=== PATIENT | female | born 1935 | race Two or more races ===

== ENCOUNTER → 2019-02-24 | Outpatient (CLI) | payer MEDICARE ==
[2019-02-24 11:08] VITALS: BP 176/76; PULSE 58; RESP 16
--- NOTE | 2019-02-26 07:30 | P.PAINCN ---
History of Present Illness - Reason for Consult Consult date: 02/24/19 - History of Present Illness This is a 84-year-old patient referred by Dr. Kristi Kwong (PCP) with a chief complaint of chronic pain in right neck, radiating to right occipital region and right shoulder. Pain does not radiate into the arm. Pain has been present since approximately July 2018, began without any inciting event. She does not have pain/numbness or tingling/weakness in her arms. She states that this pain has been getting worse since it began. Pain is rated at 1/10 at best and 10/10 at worst. Pain is worse during housework activities such as dusting, where she has her head bent. She is currently taking Tylenol and mobile for pain, these are providing minimal relief. She completed neck physical therapy approximately 2-3 months ago without benefit. Of note, she did have anterior neck fusion surgery in 2005, she does not recall the levels. Neck hardware was removed in 2011 for screw migration. She currently has no hardware in her neck. Patient also denies new-onset weakness, bowel/bladder incontinence, or any other signs or symptoms of cauda equina syndrome. There are no signs of acute intoxication, and no indications of medication diversion or overuse. In addition to above, 13-point review of systems is also negative for chest pain, shortness of breath, changes in vision, changes in hearing, new onset weakness, abdominal pain, diarrhea, extreme fatigue, malaise, fever, skin changes, homicidal or suicidal ideation, or bowel or bladder incontinence. Physical exam: Vital Signs: Reviewed in EMR GENERAL: Well appearing, in no acute distress PSYCH: Mood and affect is appropriate. Awake, alert, and oriented SKIN: Skin color, texture, turgor normal, no rashes or lesions HEENT: Normocephalic, atraumatic. EOM intact CV: No pedal edema RESP: Respirations are unlabored, no audible wheezing GI: Abdomen non-distended MUSCULOSKELETAL: Bilateral upper extremity strength is normal and symmetric. No atrophy or tone abnormalities are noted. Neck: tenderness to palpation over the cervical paraspinous muscles. multiple trigger points palpable in cervical paraspinal muscles, trapezius and rhomboid on the right side. Spurling negative, Dorsey's sign negative. mildly limited cervical spine range of motion Extremities: Peripheral joint ROM is full and pain free without obvious instability or laxity in all four extremities. No edema or skin discolorations noted. Gait: Gait is normal NEUR: Bilateral upper extremity coordination and muscle stretch reflexes are physiologic and symmetric. No loss of sensation is noted. Cranial nerves are grossly intact. Imaging: MRI cervical spine done at [facility] on 02/12/2019 shows small broad-based right paracentral disc protrusion at C2-3, advanced cervical spondylosis with no significant central canal stenosis, most pronounced at C3-4 with severe right- sided neuroforaminal narrowing. At C5-6 moderate to severe right-sided neuroforaminal narrowing. osseous fusion of C4-5 vertebral bodies as well as C6-7 vertebral bodies. Partial osseous fusion including severe disc space narrowing and bridging osteophyte anteriorly at C5-6. Assessment: 1. cervical degenerative disc disease 2. cervical spondylosis 3. cervical myofascial pain syndrome Plan: 1. procedures: We will schedule the patient to have trigger point injections to right cervical paraspinals, rhomboids and trapezius muscles. If no significant benefit from this, would consider cervical epidural steroid injection. 2. Investigations: MRI cervical spine reviewed 3. Medications: management by primary care physician 4. Disposition: for above-mentioned procedure Past Medical History Past Medical History: Cancer, Eye Disorder, Musculoskeletal Disorder, Osteoarthritis (OA), Thyroid Disorder Additional Past Medical History / Comment(s): Hx melanoma, "heart racing". Macular degeneration. Cervical pain. History of Any Multi-Drug Resistant Organisms: None Reported Past Surgical History: Back Surgery, Cardiac Ablation, Hysterectomy, Joint Replacement, Orthopedic Surgery Additional Past Surgical History / Comment(s): Rt eye retina reattached, Erik cataract exc. Rt foot melanoma exc. Rt foot plantar fasciitis, Rt foot jeong's neuroma. Exc cyst on disc. Lt CTR. Neck fusion; later removal screws. Total Lt knee. ORIF Rt femur, has diony. Past Anesthesia/Blood Transfusion Reactions: No Reported Reaction Past Psychological History: No Psychological Hx Reported Smoking Status: Never smoker Past Alcohol Use History: None Reported Past Drug Use History: None Reported - Past Family History Father Brother(s) Family Medical History: Cancer Son(s) Family Medical History: Cancer Medications and Allergies Home Medications Medication Instructions Recorded Confirmed Type Acetaminophen [Tylenol Extra 500 mg PO Q8H PRN 02/20/19 02/24/19 History Strength] Ascorbic Acid [Vitamin C] 500 mg PO DAILY 02/20/19 02/24/19 History Calcium Carbonate/Vitamin D3 1 each PO DAILY 02/20/19 02/24/19 History [Calcium 600-Vit D3 400 Tablet] Cholecalciferol [Vitamin D3 (25 2,000 unit PO DAILY 02/20/19 02/24/19 History Mcg = 1000 Iu)] Folic Acid 0.8 mg PO DAILY 02/20/19 02/24/19 History Levothyroxine Sodium [Synthroid] 88 mcg PO DAILY 02/20/19 02/24/19 History Lutein 20 mg PO DAILY 02/20/19 02/24/19 History Meloxicam [Mobic] 15 mg PO DAILY 02/20/19 02/24/19 History Vit C/E/Zn/Coppr/Lutein/Zeaxan 1 each PO BID 02/20/19 02/24/19 History [Preservision Areds 2 Softgel] Allergies Allergy/AdvReac Type Severity Reaction Status Date / Time Penicillins Allergy Swelling Verified 02/24/19 11:08 Sulfa (Sulfonamide Allergy Unknown Verified 02/24/19 11:08 Antibiotics) Childhood metoclopramide [From Reglan] AdvReac overactive Verified 02/24/19 11:08 PQRS Measure Charge Sheet Measure #130: Documentation of Current Meds in Medical Chart: Patient's medications documented in chart Measure #226: Tobacco Use: Screen & Cessation Intervention: Pt not a tobacco user Measure #111: Pneumonia Vaccination: Pneumococcal vaccine administered or previously received Measure #47: Advance Care Plan: Advance care planning discussed & documented, pt chose/unable to give Measure #412: Opioid Treatment Agreement: No documentation of signed opioid treatment agreement Measure #317: Preventitive Care & Scrn High Bld Press & F/U: Pre-hypertensive or hypertensive BP documented, pt will f/u with PCP Measure #128: Body Mass Index (BMI) Screening & Follow-up: BMI documented within normal parameters Measure #131: Pain Assessment & Follow-up: Pain positive & plan documented, Follow-up scheduled Measure #431: Unhealthy Alcohol Use Preventative Care & Scrn: Patient not identified as an unhealthy alcohol user PQRS Narrative: Smoking Status Never smoker Blood Pressure 176/76 Pain Intensity [Right Upper 10 Head] Pain Intensity [None] 0 Scale Used Numeric (1 - 10) Hx Alcohol Use (MH) No Home Medications: Ambulatory Orders Acetaminophen [Tylenol Extra Strength] 500 mg PO Q8H PRN 02/20/19 Ascorbic Acid [Vitamin C] 500 mg PO DAILY 02/20/19 Calcium Carbonate/Vitamin D3 [Calcium 600-Vit D3 400 Tablet] 1 each PO DAILY 02/20/19 Cholecalciferol [Vitamin D3 (25 Mcg = 1000 Iu)] 2,000 unit PO DAILY 02/20/19 Folic Acid 0.8 mg PO DAILY 02/20/19 Levothyroxine Sodium [Synthroid] 88 mcg PO DAILY 02/20/19 Lutein 20 mg PO DAILY 02/20/19 Meloxicam [Mobic] 15 mg PO DAILY 02/20/19 Vit C/E/Zn/Coppr/Lutein/Zeaxan [Preservision Areds 2 Softgel] 1 each PO BID 02/20/19
== END ==
LOC: PNWHC3 09:58
PROVIDERS: ATTEND Anesthesiology
DX: M50.30 Other cervical disc degeneration, unspecified cervical region (principal); M47.812 Spondylosis without myelopathy or radiculopathy, cervical region; M79.18 Myalgia, other site; Z79.899 Other long term (current) drug therapy; Z79.1 Long term (current) use of non-steroidal anti-inflammatories (NSAID); Z88.0 Allergy status to penicillin; Z88.2 Allergy status to sulfonamides; Z88.8 Allergy status to other drugs, medicaments and biological substances
CPT/HCPCS: 99201

== ENCOUNTER 2019-03-18 09:06 | Day surgery (SDC) | payer MEDICARE ==
[2019-03-10 16:04] VITALS: BMI 21.9
[~2019-03-18 09:06] MED LIST: BUPIVACAINE (PF) 0.5% 30 ML VIAL ONE; LACTATED RINGERS 1,000 ML IV SCH; methylPREDNISolone ACETATE 40 MG/ML 1 ML VIAL ONE
[2019-03-18 10:00] VITALS: RESP 16; TEMP 98.2
[2019-03-18] MEDS ORDERED: LIDOCAINE 1% 20 ML VIAL (10MG/ML) FOR IV START INTRADERMA ONE (10:08)
--- NOTE | 2019-03-18 11:11 | P.PCN ---
Date of Procedure: 03/18/19 Procedure(s) Performed: . PROCEDURE 1. Right-sided cervical trigger point injection in the right side cervical paraspinal muscles and right trapezius muscles and right rhomboid muscles (Total for trigger point injected ) 2. Cervical epidurogram. PREOPERATIVE DIAGNOSIS: 1- Cervical Degenerative Disc Diseases 2-myofascial pain syndrome cervical area 3-cervical spondylosis with cervical Facet arthropathy without myelopathy POSTOPERATIVE DIAGNOSIS: : 1- Cervical Degenerative Disc Diseases , 2- myofascial pain syndrome and cervical 3-,cervical spondylosis with cervical Facet arthropathy without myelopathy ANESTHESIA: none EBL= 0 PROCEDURE INDICATION: The patient with neck pain and myofascial pain syndrome, unresponsive to conservative treatment consents for procedure. PROCEDURE DESCRIPTION / TECHNIQUE: The patient was seen and identified in the preoperative area. Risks, benefits, complications, including but not limited to infections ,bleeding , allergic reactions to the medications ,and not complete pain releife, and alternatives were discussed with the patient, the patient agreed to proceed with the procedure and signed the consent. Patient was taken to the OR and time out was completed. The patient was placed in the sitting position on the procedure table. The neck area prepped with chlorhexidine 3 then under sterile technique each of the trigger point injected with bupivacaine 0.5%, list 3 mL injected at each trigger point using 25-gauge needle injection then after negative aspiration and there was no paresthesia during the injection, total of 12 ML of ropivacaine 0.5% mixed with 40 mg of Depo-Medrol, and 3 mL of the mixture injected at each trigger point on the right side cervical paravertebral muscles 2, and I side cervical trapezius muscle, and right side rhomboid muscle, patient tolerated the procedure well without any complication Complications= none. Disposition= patient was placed in supine position and transferred to the recovery room area in stable condition and there was no evidence of upper or lower extremity motor or sensory deficit after the procedure patient was discharged from recovery room after discharge criteria met and home discharge instructions was given by the staff and patient will follow with the pain clinic in 2-4 weeks
[2019-03-18] MEDS ORDERED: IV FLUID CONTINUATION 800 ML IV ONE (11:12)
[2019-03-18 11:33] VITALS: BP 179/84; PULSE 64
== END 2019-03-18 12:12 | disposition home or self-care (01) ==
LOC: ORPAIN 09:06
PROVIDERS: ATTEND Specialist
DX: M79.18 Myalgia, other site (principal); M47.812 Spondylosis without myelopathy or radiculopathy, cervical region; M50.30 Other cervical disc degeneration, unspecified cervical region; Z78.0 Asymptomatic menopausal state; Z88.0 Allergy status to penicillin; Z88.2 Allergy status to sulfonamides; Z88.8 Allergy status to other drugs, medicaments and biological substances
CPT/HCPCS: 20553; J1030

== ENCOUNTER → 2019-04-08 | Outpatient (CLI) | payer MEDICARE ==
[2019-04-08 12:58] VITALS: BP 179/78; PULSE 58; RESP 18
--- NOTE | 2019-04-09 14:17 | P.PAINPG ---
Subjective Progress Note Date: 04/08/19 This is a 84-year-old patient who presents with a chief complaint of chronic pain in right neck, radiating to right occipital region and right shoulder. Patient was diagnosed with cervical degenerative disc disease, cervical spondylosis and cervical myofascial pain syndrome. She underwent trigger points to the cervical paraspinals, rhomboids, trapezius on 03/18/2019 and returns today for follow-up. She reports that this procedure helped her by at least 50%, pain was reduced from 8/10-4/10. She continues to have pain in the same regionright occipital, right side of neck, right trapezius region. Pain does not radiate to arm. Pain is rated at 1/10 at rest and 4/10 with activity. Pain is worse during housework activities such as dusting, where she has her head bent. She is currently taking Tylenol and mobic for pain, these are providing minimal relief. Of note, she did have anterior neck fusion surgery in 2005, she does not recall the levels. Neck hardware was removed in 2011 for screw migration. She currently has no hardware in her neck. Patient also denies new-onset weakness, bowel/bladder incontinence, or any other signs or symptoms of cauda equina syndrome. There are no signs of acute intoxication, and no indications of medication diversion or overuse. In addition to above, 13-point review of systems is also negative for chest pain, shortness of breath, changes in vision, changes in hearing, new onset weakness, abdominal pain, diarrhea, extreme fatigue, malaise, fever, skin changes, homicidal or suicidal ideation, or bowel or bladder incontinence. Physical exam: Vital Signs: Reviewed in EMR GENERAL: Well appearing, in no acute distress PSYCH: Mood and affect is appropriate. Awake, alert, and oriented SKIN: Skin color, texture, turgor normal, no rashes or lesions HEENT: Normocephalic, atraumatic. EOM intact CV: No pedal edema RESP: Respirations are unlabored, no audible wheezing GI: Abdomen non-distended MUSCULOSKELETAL: Bilateral upper extremity strength is normal and symmetric. No atrophy or tone abnormalities are noted. Neck: tenderness to palpation over the cervical paraspinous muscles. multiple trigger points palpable in cervical paraspinal muscles, trapezius and rhomboid on the right side. Spurling negative, Dorsey's sign negative. mildly limited cervical spine range of motion. Right-sided occipital Tinel's is positive. Extremities: Peripheral joint ROM is full and pain free without obvious instability or laxity in all four extremities. No edema or skin discolorations noted. Gait: Gait is normal NEUR: Bilateral upper extremity coordination and muscle stretch reflexes are physiologic and symmetric. No loss of sensation is noted. Cranial nerves are grossly intact. Imaging: MRI cervical spine done at [facility] on 02/12/2019 shows small broad-based right paracentral disc protrusion at C2-3, advanced cervical spondylosis with no significant central canal stenosis, most pronounced at C3-4 with severe right- sided neuroforaminal narrowing. At C5-6 moderate to severe right-sided neuroforaminal narrowing. osseous fusion of C4-5 vertebral bodies as well as C6-7 vertebral bodies. Partial osseous fusion including severe disc space narrowing and bridging osteophyte anteriorly at C5-6. Assessment: 1. cervical degenerative disc disease 2. cervical spondylosis 3. cervical myofascial pain syndrome 4. Right-sided occipital neuralgia Plan: 1. procedures: We will schedule the patient to have right occipital nerve block in addition to trigger point injections to right cervical paraspinals, rhomboids and trapezius muscles; given good benefit from prior trigger point injections. If no significant benefit from this, would consider cervical cervical medial branch workup. 2. Investigations: MRI cervical spine reviewed 3. Medications: management by primary care physician 4. Referrals: To physical therapy for home exercise programcervical stretching and strengthening exercises as well as cervical traction 5. Disposition: for above-mentioned procedure PQRS Measure Charge Sheet Measure #130: Documentation of Current Meds in Medical Chart: Patient's medications documented in chart Measure #226: Tobacco Use: Screen & Cessation Intervention: Pt not a tobacco user Measure #111: Pneumonia Vaccination: Pneumococcal vaccine administered or previously received Measure #47: Advance Care Plan: Advance care planning discussed & documented, pt chose/unable to give Measure #412: Opioid Treatment Agreement: No documentation of signed opioid nighat tment agreement Measure #317: Preventitive Care & Scrn High Bld Press & F/U: Pre-hypertensive or hypertensive BP documented, pt will f/u with PCP Measure #128: Body Mass Index (BMI) Screening & Follow-up: BMI documented within normal parameters Measure #131: Pain Assessment & Follow-up: Pain positive & plan documented, Foll ow-up scheduled Measure #431: Unhealthy Alcohol Use Preventative Care & Scrn: Patient not identified as an unhealthy alcohol user PQRS Measure Charge Sheet PQRS Narrative: Smoking Status Never smoker Pain Intensity [Right Neck] 1 Hx Alcohol Use (MH) No Home Medications: Ambulatory Orders Acetaminophen [Tylenol Extra Strength] 500 mg PO Q8H PRN 02/20/19 Ascorbic Acid [Vitamin C] 500 mg PO DAILY 02/20/19 Cholecalciferol [Vitamin D3 (25 Mcg = 1000 Iu)] 2,000 unit PO DAILY 02/20/19 Folic Acid 0.8 mg PO DAILY 02/20/19 Levothyroxine Sodium [Synthroid] 88 mcg PO DAILY 02/20/19 Lutein 20 mg PO DAILY 02/20/19 Meloxicam [Mobic] 15 mg PO DAILY 02/20/19 Vit C/E/Zn/Coppr/Lutein/Zeaxan [Preservision Areds 2 Softgel] 1 each PO BID 02/20/19 Controlled Substance Measures - Controlled Substance Measures Is patient prescribed a controlled substance at discharge?: No
== END | disposition home or self-care (01) ==
LOC: PNWHC3 12:03
PROVIDERS: ATTEND Anesthesiology
DX: M50.30 Other cervical disc degeneration, unspecified cervical region (principal); M47.812 Spondylosis without myelopathy or radiculopathy, cervical region; M79.18 Myalgia, other site; M54.81 Occipital neuralgia; Z79.890 Hormone replacement therapy; Z79.1 Long term (current) use of non-steroidal anti-inflammatories (NSAID); Z79.899 Other long term (current) drug therapy
CPT/HCPCS: 99211

== ENCOUNTER → 2019-04-22 | Day surgery (SDC) | payer MEDICARE ==
[2019-04-21 10:52] VITALS: BMI 22.1
[~2019-04-22] MED LIST changes: -LACTATED RINGERS 1,000 ML IV SCH; +TRIAMCINOLONE ACETONIDE 40 MG/ML 1 ML VIAL ONE; -methylPREDNISolone ACETATE 40 MG/ML 1 ML VIAL ONE
[2019-04-22 08:42] VITALS: TEMP 97.7
--- NOTE | 2019-04-22 09:47 | P.PCN ---
Date of Procedure: 04/22/19 Preoperative Diagnosis: Right occipital neuralgia Myofascial pain in the right shoulder Postoperative Diagnosis: Same as above Procedure(s) Performed: Right occipital nerve block Trigger point injection in the right trapezius muscle and supraspinatus muscle Anesthesia: none Pathology: none sent Condition: stable Disposition: PACU Description of Procedure: Patient was taken to the OR and time out was completed. The patient was placed in the prone position on the procedure table. A pillow was placed under the patients chest to increase the cervical interlaminar space. The cervical area and right occiptial area were prepped with chloraprep. Critical pause was taken. Vital signs were closely monitored during the procedure. Conscious sedation was used during the procedure to decrease patients anxiety. The the occipital exuberance and superior nuchal line were identified on the right side of the occiput. The greater occipital nerve location was estimated to be medial to the occipital artery and one third of the distance between the occipital exuberance and the right mastoid and the lesser occipital nerve was about two thirds of the distance between the occipital exuberance and the right mastoid on the superior nuchal line. I used 25-gauge 1-1/2 inch needle to go through the skin at these 2 points and infiltrate 2.5 MLS of a solution made up of 8 MLS Marcaine 0.5% +40 mg of Kenalog. The solution was infiltrated down to the periosteum.The same procedure was repeated on the left side. Patient to lerated procedure well. I then turned my attention into doing the trigger point injection on the right supraspinatus and trapezius muscles. A total of 5 points were identified in these 2 muscles and injected 1 mL of the above-mentioned solution in each point using 25-gauge 1-1/2 inch needle. Patient tolerated procedure well.
[2019-04-22 09:48] VITALS: RESP 17
[2019-04-22 09:53] VITALS: BP 184/82; PULSE 56
== END ==
LOC: ORPAIN 07:52
PROVIDERS: ATTEND Anesthesiology
DX: M54.81 Occipital neuralgia (principal); M79.18 Myalgia, other site; M50.30 Other cervical disc degeneration, unspecified cervical region; M47.812 Spondylosis without myelopathy or radiculopathy, cervical region; Z98.1 Arthrodesis status; Z79.890 Hormone replacement therapy; Z79.899 Other long term (current) drug therapy; Z79.1 Long term (current) use of non-steroidal anti-inflammatories (NSAID)
CPT/HCPCS: 20552; 64405; J3301; 20553